=== PATIENT | male | born 1985 | race American Indian/Alaskan Native ===

== ENCOUNTER 2016-11-28 00:04 | Emergency (ER) | payer MEDICARE ==
[2016-11-28] MEDS ORDERED: TYLENOL ONE (00:26)
[2016-11-28] MEDS ORDERED: TYLENOL PO ONE (00:34)
[2016-11-28] MEDS ORDERED: COZAAR PO ONE (03:22)
[2016-11-28] MEDS ORDERED: HCTZ PO ONE (03:22)
--- NOTE | 2016-11-28 03:22 | Emergency Department Report ---
HPI - General Chief Complaint: Headache Time Seen by Provider: 11/28/16 03:22 - HPI HPI: Patient here reports that at about 2300 hrs. he was cleaning bathroom with bleach and ammonia and now got overwhelmed and then he developed a headache headache is 3 out of 10 to the front of his head. Denies any nausea vomiting . Denies any fever or chills. Denies any cough or shortness of breath. Denies any chest pain. Denies any nasal congestion. Poison control was called by triage nurse and was instructed to palpation to humidify the air with O2. He can also do discuss by using a shower at home. Her blood pressure was elevated in triage at 156/105 and he said he missed his dose of medication which she takes losartan 50 mg and HCTZ 25 mg. Denies any dizziness or blurred vision. ED Past Medical Hx - Past Medical History Previous Medical History?: Yes Hx Hypertension: Yes Additional medical history: Obesity. Uses CPAP at night - Surgical History Past Surgical History?: Yes Additional Surgical History: Back 2001, Chemo x 10 - Family History Family history: hypertension - Social History Smoking Status: Never Smoker Substance Use Type: Alcohol ED Review of Systems ROS: Stated complaint: CHEMICAL INHALATION Other details as noted in HPI Comment: All other systems reviewed and negative Constitutional: denies: chills, fever Eyes: denies: eye pain, vision change ENT: denies: throat pain, congestion Respiratory: no symptoms reported Cardiovascular: denies: chest pain, palpitations, edema, syncope Gastrointestinal: denies: abdominal pain, nausea, vomiting, diarrhea Musculoskeletal: denies: back pain, joint swelling, arthralgia, myalgia Skin: denies: rash Neurological: headache. denies: weakness, numbness, paresthesias, confusion, abnormal gait Physical Exam - Physical Exam Vital Signs: Vital Signs 11/28/16 00:08 Temperature 98.6 F Pulse Rate 106 H Respiratory 20 Rate Blood Pressure 156/105 [Right] O2 Sat by Pulse 97 Oximetry Vital Signs 11/28/16 11/28/16 00:08 03:33 Temperature 98.6 F Pulse Rate 106 H 101 H Respiratory 20 17 Rate Blood Pressure 156/105 139/91 [Right] O2 Sat by Pulse 97 99 Oximetry General: This is a 31-year-old male well-nourished well-developed and nontoxic in appearance. Physical Exam: Head: Normocephalic atraumatic Mouth: Moist, no pharyngeal exudate or erythema. Uvula is midline and oral airway is patent. No facial swelling. No peritonsillar abscesses. Nose: Normal mucosa .Maxillary and frontal sinuses nontender to palpate Neck: Supple, no C-spine tenderness, no tracheal deviation. Nontender to palpate. no adenopathy. Full range of motion Abdomen: Soft, nontender to palpate in all quadrants, normal bowel sounds in all quadrant and negative CVA tenderness bilaterally. Neurological: GCS of 15, alert and oriented 3. Speech is clear and fluid. Normal gait. No motor or sensory deficit. Normal reflexes. No facial drooping. No pronator drift and negative Romberg. Eyes: Bilateral pupils equal and reactive to light, bilateral EOM intact. Bilateral sclera and conjunctiva without injection. Normal accommodation. No nystagmus Lungs: Clear to auscultate bilaterally no rhonchi wheezes or rales. Normal work of breathing . No coughing and no use of accessory muscles. extremity; No CCE. +2 pulses. No neurovascular compromise Cardiovascular: S1-S2, mild tachycardia 106 .regular rhythm. No murmurs. Skin: clean Dry and intact no rash no lesions Psych: Normal mood and behavior ED Course Vital Signs 11/28/16 00:08 Temperature 98.6 F Pulse Rate 106 H Respiratory 20 Rate Blood Pressure 156/105 [Right] O2 Sat by Pulse 97 Oximetry Vital Signs 11/28/16 11/28/16 00:08 03:33 Temperature 98.6 F Pulse Rate 106 H 101 H Respiratory 20 17 Rate Blood Pressure 156/105 139/91 [Right] O2 Sat by Pulse 97 99 Oximetry - Reevaluation(s) Reevaluation #1: 11/28/16 04:20 Patient given dose of Losartan 50 mg a well-nourished HCTZ for elevated blood pressure. He said he usually takes his medication at night and he missed this dose. Blood pressures normalized. She was also given Tylenol 650 mg in triage area and he reports that he does not have any headache. Patient reports that he is feeling better. ED Medical Decision Making - Medical Decision Making ED course: She given his nighttime dose of blood pressure medication to include losartan 50 mg and HCTZ 12.5 mg. Blood pressure is better. He was also given Tylenol 650 mg in triage area for headache and he said his headache is gone. He was observed in emergency room and he is stable and reports that he feels better. He is not having any neurological deficits, lungs sounds are normal and no chest pain or shortness of breath. Patient discharged home with instruction from poison control to use humidifier air. Patient oxygenation remarkably remains above 97% in emergency room and his respiration within normal limits. Discharged home in stable condition. I instructed him that he needs to follow up with his primary care physician on Friday. Critical care attestation.: If time is entered above; I have spent that time in minutes in the direct care of this critically ill patient, excluding procedure time. ED Disposition Clinical Impression: Inhalation of cleaning agent Qualifiers: Encounter type: initial encounter Injury intent: accidental or unintentional Qualified Code(s): T59.891A - Toxic effect of other specified gases, fumes and vapors, accidental (unintentional), initial encounter Headache Qualifiers: Headache type: unspecified Headache chronicity pattern: acute headache Intractability: not intractable Qualified Code(s): R51 - Headache Disposition: DISCHARGED TO HOME OR SELFCARE Is pt being admited?: No Does the pt Need Aspirin: No Condition: Stable Instructions: Acute Headache (ED) Additional Instructions: You inhaled chemical that caused her to have a headache. Please refrain from doing this in the future. Please continue taking blood pressure medication as prescribed by her primary care doctor Follow-up with her primary care physician in one day and if he does not have one using follow-up with outside Medical Center. Symptoms return, he can return to the emergency room. take [id number] Tylenol for headache. Referrals: [facility] [Outside] - 11/29/16 PRIMARY CARE [Primary Care Provider] - 11/29/16 Forms: Work/School Release Form(ED)
[2016-11-28 03:34] VITALS: BP 139/91
== END 2016-11-28 04:43 | disposition home or self-care (01) ==
LOC: ED 00:04
DX: T59.891A Toxic effect of other specified gases, fumes and vapors, accidental (unintentional), initial encounter (principal); R51 Headache; I10 Essential (primary) hypertension; Y92.89 Other specified places as the place of occurrence of the external cause
CPT/HCPCS: 99282